=== PATIENT | male | born 1960 | race Caucasian/White ===

== ENCOUNTER → 2019-05-18 | Outpatient (REF) | payer OTHER ==
[2019-05-21 00:06] LABS: PSA TOTAL 3.3 ng/mL (0.0-4.0)
== END ==
LOC: M LABDRAW1 15:21
PROVIDERS: ATTEND Nurse Practitioner Family
DX: R97.20 Elevated prostate specific antigen [PSA] (principal)

== ENCOUNTER 2019-06-09 15:58 | Emergency (ER) | payer OTHER ==
[~2019-06-09] VITALS: Ht 175.3 cm; Wt 95.3 kg
[2019-06-09] MEDS ORDERED: DOESNT KNOW NAMES (16:09)
--- NOTE | 2019-06-09 16:49 | REP ---
Clinical: Trauma. Fall. Technique: Two views of the right clavicle. Findings: Comminuted fracture dislocation through the mid clavicular shaft noted. Impression: Comminuted mid clavicular shaft fracture. Electronically Signed by Herberth Nava MD 06/09/2019 04:42 P
[2019-06-09] MEDS ORDERED: NORCO 5/325MG TABLET (BULK FOR ED) PO ONE (18:15)
[2019-06-09 18:18] VITALS: BP 138/95
[2019-06-11] MEDS ORDERED: CELE1CAP4 PO (14:20)
[2019-06-11] MEDS ORDERED: RANI15TA PO (14:20)
[2019-06-11] MEDS ORDERED: MAPA500C PO (14:20)
--- NOTE | 2019-06-11 18:24 | ER ---
DATE OF ER CONSULTATION: 06/09/2019 CHIEF COMPLAINT: Right shoulder pain. HISTORY OF PRESENT ILLNESS: Patient presents today after he jumped off the back of his truck and had a slip and fall and landed on his right side. Immediately appreciated sharp pain and swelling to his right shoulder. He had pain with increased range of motion of the shoulder and alleviated with rest. The pain is sharp, was 10/10 and is alleviated with pain medication. Denies any fever, chills, nausea or vomiting. REVIEW OF SYSTEMS: Complete 10 system review was conducted. Pertinent positives and negatives are in the history of present illness. All other systems are negative. ALLERGIES: No known drug allergies. PAST MEDICAL HISTORY: Gastroesophageal reflux disease (GERD). Negative otherwise. PAST SURGICAL HISTORY: Vasectomy. SOCIAL HISTORY: Denies smoking, drinks socially and denies any illicit drug use. PHYSICAL EXAMINATION: The patient is awake, alert and oriented, well dressed, appropriate affect man. Normocephalic, atraumatic. Right upper extremity tender to palpation over the mid shaft clavicle. There is obvious swelling and ecchymosis. Skin intact. Radial pulse 2+, regular rate. Positive AIN, PIN and ulnar motor function is intact. Sensation to light touch superficial sensory branch of radial nerve, medial nerve, and ulnar nerve. Pain with range of motion of the shoulder. Left lower extremity nontender to palpation. Range of motion of the shoulder or wrist, and elbow. Positive AIN/PIN and ulnar motor function. Sensation intact to light touch in superficial sensory branch, radial nerve, median nerve, and ulnar nerve. Radial pulses 2+ regular rate. Skin is intact. Bilateral lower extremities no tenderness to palpation. Full active range of motion of the feet, ankles and the hip without any apparent discomfort. Skin is intact. Posterior tibial pulses 2+ regular rate. Sensation intact to light touch superficial peroneal, deep peroneal, saphenous, and tibial distributions. Positive EHL, patellotibial and gastroc motor function. Imaging reviewed of the right clavicle demonstrating 100% displaced comminuted midshaft clavicle fracture with comminution and z type deformity. Patient at this point in time we can discharge him with a sling. We discussed operative versus nonoperative intervention. Patient would like to at least start with nonoperative intervention and a sling. We will see him back in the office later this week to reassess how he is doing. In the meantime, he will take [id number] pain medications and be nonweightbearing in the right upper extremity. Patient expressed understanding and agreed with the plan. JEANNIE
== END 2019-06-09 18:21 | disposition home or self-care (01) ==
LOC: M ED 15:58
DX: S42.001A Fracture of unspecified part of right clavicle, initial encounter for closed fracture (principal); W00.0XXA Fall on same level due to ice and snow, initial encounter; Y92.018 Other place in single-family (private) house as the place of occurrence of the external cause; K21.9 Gastro-esophageal reflux disease without esophagitis; Z79.899 Other long term (current) drug therapy

== ENCOUNTER 2019-06-12 09:46 | Day surgery (SDC) | payer OTHER ==
[~2019-06-12] VITALS: Ht 175.3 cm; Wt 98.0 kg
[~2019-06-12 09:46] MED LIST: ACETAMINOPHEN 1000MG 100ML IV BTL (OFIRMEV) (J0131 PER 10MG) As Ordered ONE; BUPIVACAINE/EPIN 0.25% 30 ML VIAL As Ordered ONE; CELE1CAP4 PO; DOESNT KNOW NAMES; LIDOCAINE 2% INJ 100 MG/5 ML SDV (FOR ANES.) As Ordered ONE; MAPA500C PO; MIDAZOLAM INJ 2 MG/2 ML VIAL (J2250) As Ordered ONE; ONDANSETRON 4MG/2ML VIAL (J2405) As Ordered ONE; RANI15TA PO; ROCURONIUM BROMIDE 50 MG/5 ML VIAL As Ordered ONE; SUGAMMADEX SODIUM 500 MG/5 ML VIAL (BRIDION) As Ordered ONE; ceFAZolin SOD 2 GM in IV 1 EA IV ONE; dexameTHASONE 4 MG/ML 1ML VIAL (J1100) As Ordered ONE; fentaNYL 100 MCG/2 ML INJECTION (J3010) As Ordered ONE; propofoL 200 MG/20 ML VIAL As Ordered ONE
[2019-06-12] MEDS ORDERED: BUPIVACAINE LIPOSOME/PF 1.3% 20ML VIAL (13.3MG/ML)(EXPAREL)(C9290 PER1MG) As Ordered ONE (11:31)
[2019-06-12] MEDS ORDERED: ePHEDrine SULFATE 25 MG/5 ML(5MG/ML) SYRINGE As Ordered ONE (12:04)
[2019-06-12] MEDS ORDERED: PHENYLephrine HCL 500 MCG/5 ML (100MCG/ML) SYRINGE (J2370) As Ordered ONE (12:04)
[2019-06-12] MEDS ORDERED: fentaNYL 100 MCG/2 ML INJECTION (J3010) As Ordered ONE (12:18)
--- NOTE | 2019-06-12 14:22 | REP ---
Clinical: Right clavicle fracture. Technique: Intraoperative fluoroscopic imaging using portable C-arm technique. Findings: The patient is status post satisfactory right clavicle fixation. Total fluoroscopic time 17 seconds. Impression: Status post right clavicle fixation. Electronically Signed by Herberth Nava MD 06/12/2019 02:13 P
[2019-06-12] MEDS ORDERED: PERCOCET 5MG/325MG TAB PO PRN (14:30)
[2019-06-12] MEDS ORDERED: ONDANSETRON 4MG/2ML VIAL (J2405) IV PRN (14:30)
[2019-06-12] MEDS ORDERED: MORPHINE 2 MG/ML 1ML VIAL (J2270) IV PRN (14:30)
[2019-06-12] MEDS ORDERED: LR 1,000 ML IV SCH (14:30)
[2019-06-12] MEDS ORDERED: oxyCODONE 5MG TAB PO PRN ×2 (14:30)
[2019-06-12] MEDS ORDERED: METOCLOPRAMIDE INJ 10MG/2ML VIAL (J2765) IV PRN (14:30)
[2019-06-12] MEDS ORDERED: fentaNYL 100 MCG/2 ML INJECTION (J3010) IV PRN (14:30)
--- NOTE | 2019-06-12 15:07 | RO ---
DATE OF PROCEDURE: 06/12/2019 PREPROCEDURE DIAGNOSIS: Right clavicle shaft fracture. POSTPROCEDURE DIAGNOSIS: Right clavicle shaft fracture. PROCEDURE: Right open induction, internal fixation of clavicle. SURGEON: Dr. Jake Flores. HOG TENDER: None. ANESTHESIA: General. ESTIMATED BLOOD LOSS: 50 mL. COMPLICATIONS: None. INDICATION: 58-year-old male who suffered a fall and had a clearly displaced comminuted type clavicle fracture. We discussed the risks, benefits of conservative versus operative intervention including but not limited to infection, damage to surrounding structures, malunion, nonunion and blood loss. Patient wished to proceed with operative intervention. The patient expressed understanding and wished to proceed. DESCRIPTION OF PROCEDURE: The patient was brought back to the OR in the supine position and underwent general anesthesia, at which point, the patient was placed into the beach chair. The right arm was prepped and draped in the usual fashion. We then had a time-out confirming site and side and surgery. Once all in agreement, we made a longitudinal incision along the clavicle, careful to control superficial bleeding. We then transected the platysma exposing the clavicle underneath. At which point, we debrided the fracture fragments. We found one proximally large distal fragment along with two intraarticular pieces making minimal contact from the main proximal and distal fragments. We attempted to maintain soft tissue adhesions with the two large intra-calary segments. We reduced the anterior fragment to the distal shaft using a K-wire with direct mghfu-dk-hulxe reduction. Once this was adequate in place, we secured it with a 2.4 lag screw. At this point, we were able to create a passable shaft for a cortical contact. We then drilled two 2.0 drill bites at an angle in order to fit the pmrqp-os-eqkoi reduction of the superior cortex of the clavicle to reduce our main fracture fragments. Once this was adequately done, we placed the inferior portion of intercalary peicewith soft tissues still attached underneath the fragment but was unable to get it reduced so we will leave it right in place. We then grabbed a 3.5 recon plate and contoured it to match the clavicle. At which point we placed two cortical screws in the distal segment and two cortical screws in the proximal segment to hold the reduction. We used hybride fixation between those two cortical screws with locking screws to improve the hardware fixation . Due to a large working length we have in place. At this point, we removed the overtop clamp, however, we noticed that the fracture fragments had a gap at the posterior aspect. We then used a vospy-lo-sotwd reduction clamp to reduce that fracture gap and use a lag screw near the plate to compress that fragment. There was a slight step-off but I was very happy with the compression at the fracture site. At this point, we took final films confirming the screw placement, the SC joints or AC joints. We were happy with the plate balance as well as reduction of the fractureand fixation. We irrigated the wound thoroughly and gave 20 mL of Exparel in the subcutaneous tissue and closed the platysmal layer in the subcutaneous tissue with #2-0 Vicryl. The skin with #3-0 Monocryl, Mastisol, Steri-Strips, gauze and Tegaderm. The patient was placed in a sling, awakened and taken to the postanesthesia care unit (PACU) in stable condition. POSTOPERATIVE PLAN: Patient will be non-weightbearing but work on shoulder range of motion and we will seen him in the office for skin check in 2 weeks. JEANNIE
[2019-06-12 16:05] VITALS: BP 155/95
== END 2019-06-12 16:15 | disposition home or self-care (01) ==
LOC: M SDC 09:46
PROVIDERS: ATTEND Orthopaedic Surgery Hand Surgery
DX: S42.021A Displaced fracture of shaft of right clavicle, initial encounter for closed fracture (principal); W19.XXXA Unspecified fall, initial encounter; Y92.89 Other specified places as the place of occurrence of the external cause; Y99.9 Unspecified external cause status; Y93.9 Activity, unspecified; K21.9 Gastro-esophageal reflux disease without esophagitis; G47.30 Sleep apnea, unspecified
CPT/HCPCS: 23515; 76000; C1713; C9290; J0131; J0690; J1100; J2250; J2370; J2405; J3010

== ENCOUNTER → 2019-07-27 | Outpatient (CLI) | payer OTHER ==
[~2019-07-27] MED LIST changes: -ACETAMINOPHEN 1000MG 100ML IV BTL (OFIRMEV) (J0131 PER 10MG) As Ordered ONE; -BUPIVACAINE/EPIN 0.25% 30 ML VIAL As Ordered ONE; -LIDOCAINE 2% INJ 100 MG/5 ML SDV (FOR ANES.) As Ordered ONE; -MIDAZOLAM INJ 2 MG/2 ML VIAL (J2250) As Ordered ONE; -ONDANSETRON 4MG/2ML VIAL (J2405) As Ordered ONE; -ROCURONIUM BROMIDE 50 MG/5 ML VIAL As Ordered ONE; -SUGAMMADEX SODIUM 500 MG/5 ML VIAL (BRIDION) As Ordered ONE; -ceFAZolin SOD 2 GM in IV 1 EA IV ONE; -dexameTHASONE 4 MG/ML 1ML VIAL (J1100) As Ordered ONE; -fentaNYL 100 MCG/2 ML INJECTION (J3010) As Ordered ONE; -propofoL 200 MG/20 ML VIAL As Ordered ONE
--- NOTE | 2019-07-29 08:02 | SLEEPCENT ---
DATE OF STUDY: 07/27/2019 ORDERED BY: Herberth Mabry Nocturnal polysomnography was performed for evaluation of sleep physiology in this patient with a history of excessive somnolence, snoring and nonrestorative sleep. 7 hours and 2 minutes of data were reviewed. There were 338 minutes of sleep identified. Sleep latency was prolonged at 23.5 minutes. Rapid eye movement (REM) latency was normal at 87 minutes. Sleep architecture showed fragmentation. There were 2 REM cycles noted. Overall sleep efficiency was 81%. The electrocardiogram showed a sinus rhythm with an average heart rate of 67 beats per minute. Electroencephalogram (EEG) showed normal waveforms for awake and sleep. There were 212 respiratory events identified of 10 seconds in duration or greater for an apnea-hypopnea index of 37.6; 151 of the 212 apneic events were central, 8 were mixed apneas. Respiratory events were more frequent, but not exclusive to the supine posture. Arousals from respiratory events occurred 24 times per hour and oxygen desaturations were seen into the low 80s. There was some limb activity. Limb movement arousal index was only 1.2. 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 Apnea-hypopnea index 37.6. RECOMMENDATION: The patient should be encouraged to return to the sleep disorder center for pressure therapy. Given the complexity and the frequency of central events, a bilevel device and backup rate will likely be needed. In the interim, alcohol and sedative avoidance should be practiced and caution exercised during the operation of motor vehicles.
== END ==
LOC: M SLEEP 20:00
PROVIDERS: ATTEND Physician Assistant
DX: R06.83 Snoring (principal)

== ENCOUNTER → 2019-08-18 | Outpatient (CLI) | payer OTHER ==
[~2019-08-18] MED LIST changes: +ACET-897 PO; +OMEP1CAP73 PO; +[UNRECOGNIZED DRUG - REMARK]
== END ==
LOC: M LABSMTC 11:53
PROVIDERS: ATTEND Anesthesiology
DX: Z01.818 Encounter for other preprocedural examination (principal); Z11.59 Encounter for screening for other viral diseases

== ENCOUNTER 2019-08-19 12:20 | Day surgery (SDC) | payer OTHER ==
[~2019-08-19] VITALS: Ht 175.3 cm; Wt 96.2 kg
[~2019-08-19 12:20] MED LIST changes: +LIDOCAINE 1% MDV 20ML VIAL SQ PRN; +LR 1,000 ML IV ONE; +ceFAZolin SOD 2 GM in IV 1 EA IV ONE
[2019-08-19] MEDS ORDERED: LIDOCAINE 2% 100MG/5ML SDV (FOR ANES.) As Ordered ONE ×2 (13:33→14:49)
[2019-08-19] MEDS ORDERED: MIDAZOLAM INJ 2MG/2ML VIAL (J2250 PER 1MG) As Ordered ONE (13:33)
[2019-08-19] MEDS ORDERED: fentaNYL 100 MCG/2 ML INJECTION (J3010) As Ordered ONE ×2 (13:33→17:37)
[2019-08-19] MEDS ORDERED: ROCURONIUM BROMIDE 50 MG/5 ML VIAL As Ordered ONE ×2 (13:33→16:12)
[2019-08-19] MEDS ORDERED: ONDANSETRON 4MG/2ML VIAL As Ordered ONE (13:33)
[2019-08-19] MEDS ORDERED: dexameTHASONE 4 MG/ML 1ML VIAL (J1100 PER 1MG) As Ordered ONE (13:33)
[2019-08-19] MEDS ORDERED: propofoL 200 MG/20 ML VIAL As Ordered ONE (13:34)
[2019-08-19] MEDS ORDERED: SUGAMMADEX SODIUM 500 MG/5 ML VIAL (BRIDION) As Ordered ONE (14:16)
[2019-08-19] MEDS ORDERED: KETOROLAC 60 MG/2 ML VIAL As Ordered ONE (14:16)
[2019-08-19] MEDS ORDERED: BUPIVACAINE/EPIN 0.25% 30 ML VIAL As Ordered ONE (14:41)
[2019-08-19] MEDS ORDERED: ePHEDrine SULFATE 25 MG/5 ML(5MG/ML) SYRINGE As Ordered ONE (15:35)
[2019-08-19] MEDS ORDERED: HYDROmorphone HCL 2 MG/ML 1ML VIAL (J1170) As Ordered ONE (15:58)
[2019-08-19] MEDS ORDERED: ACETAMINOPHEN 1000MG 100ML IV BTL (OFIRMEV) (J0131 PER 10MG) As Ordered ONE (16:52)
[2019-08-19] MEDS ORDERED: oxyCODONE 5MG TAB As Ordered ONE (17:37)
[2019-08-19] MEDS: oxyCODONE 5MG TAB PO PRN ×2 (17:40→18:15)
[2019-08-19] MEDS: fentaNYL 100 MCG/2 ML INJECTION (J3010) IV PRN ×4 (17:40→18:09)
[2019-08-19] MEDS ORDERED: LR 1,000 ML IV SCH (17:45)
[2019-08-19] MEDS ORDERED: METOCLOPRAMIDE INJ 10MG/2ML VIAL (J2765 PER 1) IV PRN (17:45)
[2019-08-19] MEDS ORDERED: oxyCODONE 5MG TAB PO PRN (17:45)
[2019-08-19] MEDS ORDERED: ONDANSETRON 4MG/2ML VIAL IV PRN (17:45)
--- NOTE | 2019-08-19 17:53 | REP ---
RIGHT CLAVICLE: TWO VIEWS. HISTORY: Clavicle fracture. 3 seconds of fluoroscopy time is reported. FINDINGS: A sequence of two last-image hold fluoroscopically-obtained spot radiographs of the right clavicle show a screw-plate fixation device in place. Electronically Signed by Gurwinder Canseco MD 08/19/2019 05:54 P
[2019-08-19 20:50] VITALS: BP 152/91
--- NOTE | 2019-08-19 23:53 | RO ---
DATE OF PROCEDURE: 08/19/2019 PREOPERATIVE DIAGNOSIS: Right clavicle nonunion hardware failure. POSTOPERATIVE DIAGNOSIS: Right clavicle nonunion hardware failure. PROCEDURE: Right clavicle removal of hardware. Debridement of skin, subcutaneous tissue, muscle, and bone. Cultures taken. Tissue pathology taken. Open reduction and internal fixation of clavicle. Modifier 22 for extra time and difficulty given bone loss and need for nonunion take down and grafting SURGEON: Jake Flores MD MANAGER FLIGHT OPERATIONS: Yvonne Sabillon PA-C, who was essential for retraction and manipulation of the arm during ramon portions of the procedure. ANESTHESIA: General. INDICATIONS: This 58-year-old male suffered a clavicle fracture approximately 2 months ago. Unfortunately, the patient was extremely active and while doing push-ups at approximately 6 weeks postoperatively, he fractured his plate. We then discussed the risks of operative versus nonoperative intervention. The patient elected to proceed with operative intervention. We discussed the risks and benefits, including, but not limited to, infection, damage to surrounding structures, incomplete relief, malunion, nonunion, and need for further surgery. PREOPERATIVE ANTIBIOTICS: 2 grams of Ancef. COMPLICATIONS: None. BLOOD LOSS: 50 mL. OPERATIVE DESCRIPTION: Patient was brought back to the operating room (OR) in the supine position. Underwent general anesthesia. Was then transferred over to the beach chair and locked appropriately into position. Prepped and draped the right arm in the usual fashion. We then had time-out, confirming site, side, and surgery. Once in agreement, we made a longitudinal incision along the previous incision, extending it approximately 1 cm on both medial and lateral aspects. Sharply dissected through subcutaneous tissue and platysma down to the bone. We encountered the broken plate. There was no obvious fluid collection or signs of purulence. Overall, appeared very benign. At this point, we took cultures, aerobic and anaerobic. We then removed the previous 3.5 recon plate along with the locking and nonlocking screws, along with our 2.7 lag screw, at which point we then used a rongeur at the fracture site to remove tissue. This will be sent for culture and Gram stain. We then used a combination of #15 blade, curettes, and a maura to thoroughly debride the skin, subcutaneous tissue, muscle, and bone sharply. We debrided the bone until we encountered bleeding bone, which was actually remarkably quick. We irrigated the wound with a liter of saline. At this point, we then realized we had a significant defect within the clavicle. There was near circumferential, approximately 80% of the circumference, no cortical contact with a 3 cm longitudinal defect. We then selected our superior 3.5/2.7 lateral plating. We used indirect reduction methods, clamping the plate to the bone to reduce the fracture, at which point we secured it in place with a cortical screw both medial and lateral to the fracture. We then used an additional locking 3.5 screw laterally along with four of the 2.7 locking screws, and medially we placed additional cortical screw and one locking screw at the most medial aspect. At this point, the decision was made to open 2.5 mL of the OncoEthixuy DMX demineralized bone graft and mixed it with crushed cancellous 10 mL bone graft into the defect. We were able to pack it in tightly until it completely enveloped, at which point we took our final films, ensuring the plate and none of the screws were interfering with the acromioclavicular (AC) joint and that we had adequate reduction. We then created a sheath to close around the plate and bone graft in the clavicle. We used another liter once this was in place, irrigating superficially. We closed subcutaneous with #2-0 Vicryl, skin with #3-0 Monocryl, Mastisol, Steris, gauze, Tegaderm. Placed the patient in a sling. Patient was then awakened and taken to postop in postanesthesia care unit (PACU). POSTOPERATIVE PLAN: Patient will work on range of motion and pain control. I discussed with the patient at this point in time we will avoid all nonsteroidal anti-inflammatory drugs (NSAIDs) to help decrease the risk of nonunion. We will also followup on the cultures for infection. Based on the fact that it did not look grossly infected, we will hold off on antibiotics at this time. We will slowly progress them only with range of motion at this time. He will likely have no heavy lifting, pushing, pulling for approximately 3 months until union is evident. Patient expressed understanding and agreement with this ahead of time. JEANNIE
--- NOTE | 2019-08-20 02:29 | REP ---
Clinical: Status post fixation. Technique: Two views of the right clavicle. Findings: The patient is status post satisfactory open reduction and fixation for mid clavicular shaft fracture. Underlying age-related changes noted. Acromioclavicular and glenohumeral joints appear intact and without dislocation. Impression: Status post right clavicle fixation. Electronically Signed by Herberth Nava MD 08/20/2019 02:21 A
--- NOTE | 2019-08-20 19:25 | ECGEPIP ---
[facility] Test Date: 2019-08-19 Pat Name: FRANCES CARTER Department: Room: - Gender: Male [employer] Quality Manager: CORTES : 1960 Requested By: GAUTAM Eisenberg Order Number: [id number] Reading MD: Geoffrey Andrade Measurements Intervals [place] Rate: 77 P: 12 DE: 178 QRS: 15 QRSD: 101 T: 16 QT: 350 QTc: 397 Interpretive Statements Normal sinus rhythm Normal EKG Comparison tracing not on file Electronically Signed on 08-20-2019 19:25:23 EDT by Geoffrey Andrade
== END 2019-08-19 21:00 | disposition home or self-care (01) ==
LOC: M SDC 12:20
PROVIDERS: ATTEND Orthopaedic Surgery Hand Surgery
DX: S42.001K Fracture of unspecified part of right clavicle, subsequent encounter for fracture with nonunion (principal); T84.218A Breakdown (mechanical) of internal fixation device of other bones, initial encounter; Y79.2 Prosthetic and other implants, materials and accessory orthopedic devices associated with adverse incidents; E78.5 Hyperlipidemia, unspecified; R12 Heartburn; M19.90 Unspecified osteoarthritis, unspecified site; M54.9 Dorsalgia, unspecified; G47.30 Sleep apnea, unspecified; Z79.899 Other long term (current) drug therapy
CPT/HCPCS: 20680; 23515; 73000; 76000; 87070; 87075; 87205; 93005; C1713; C1762; J0131; J0690; J1100; J1170; J1885; J2250; J2405; J3010

== ENCOUNTER → 2019-10-06 | Outpatient (CLI) | payer OTHER ==
[~2019-10-06] MED LIST changes: -LIDOCAINE 1% MDV 20ML VIAL SQ PRN; -LR 1,000 ML IV ONE; -ceFAZolin SOD 2 GM in IV 1 EA IV ONE
--- NOTE | 2019-10-12 15:32 | SLEEPCENT ---
DATE OF PROCEDURE: 10/06/2019 ORDERED BY: LON Evans Nocturnal polysomnography was performed for the titration of pressure therapy in this patient with obstructive sleep apnea syndrome. Apnea-hypopnea index of 37.6. For testing the patient was fit with a ResMed Quattro full-face mask of medium size; 4 cm of water pressure were applied to the circuit and the lights were extinguished. 6 hours and 29 minutes of data were reviewed. There were 316 minutes of sleep identified. Sleep latency was normal at 12 minutes. Rapid eye movement (REM) latency was normal at 71.5 minutes. Sleep architecture was good with 4 REM cycles. Overall sleep efficiency was 82.1%. The electrocardiogram showed a sinus rhythm with some artifact, average heart rate 70 beats per minute. Electroencephalogram (EEG) showed normal waveforms for awake and sleep. Respiratory events were fully palliated with CPAP at a pressure of +9 and remaining measures of sleep physiology were normal. IMPRESSION: Obstructive sleep apnea syndrome (G47.33). RECOMMENDATIONS: Nightly use of pressure therapy 9 cm of water.
== END ==
LOC: M SLEEP 20:00
PROVIDERS: ATTEND Physician Assistant
DX: G47.33 Obstructive sleep apnea (adult) (pediatric) (principal)

== ENCOUNTER → 2024-10-12 | Outpatient (CLI) | payer MEDICARE, OTHER | LOC: M RAD 11:27 | PROVIDERS: ATTEND Internal Medicine | DX: N20.0 Calculus of kidney (principal); Z79.1 Long term (current) use of non-steroidal anti-inflammatories (NSAID) ==

== ENCOUNTER → 2025-01-15 | Outpatient (CLI) | payer MEDICARE, OTHER | LOC: M PLALAB 08:51 | PROVIDERS: ATTEND Nurse Practitioner Family | DX: R97.20 Elevated prostate specific antigen [PSA] (principal) ==